=== PATIENT | female | born 1960 | race Two or more races ===

== ENCOUNTER 2023-04-15 09:37 | Emergency (ER) | payer MEDICAID ==
[~2023-04-15] VITALS: Ht 154.9 cm; Wt 63.3 kg
[2023-04-15] MEDS ORDERED: DexAMETHasone SOD PHOS 10MG/1ML VIAL INJ IM ONE (13:15)
[2023-04-15] MEDS ORDERED: KETOROLAC TROMETH 30 MG/ML 1ML VIAL IM ONE (13:15)
[2023-04-15] MEDS ORDERED: ACETAMINOPHEN 500 MG TAB PO ONE (13:15)
[2023-04-15 13:25] VITALS: BP 125/66; PULSE 66; RESP 16; O2SAT 97
[2023-04-15] MEDS ORDERED: ACET500T58 PO ×3 (14:06→14:11)
[2023-04-15] MEDS ORDERED: PRED20TA2 PO ×3 (14:06→14:11)
[2023-04-15] MEDS ORDERED: MELO7.5T7 PO ×3 (14:06→14:11)
[2023-04-15 14:09] VITALS: TEMP 98
== END 2023-04-15 14:10 | disposition home or self-care (01) ==
LOC: ER 09:37
DX: G56.02 Carpal tunnel syndrome, left upper limb (principal); Z79.899 Other long term (current) drug therapy
CPT/HCPCS: 29125; 72040; 96372; 99284; J1100; J1885